=== PATIENT | female | born 1970 | race Caucasian/White ===

== ENCOUNTER → 2019-02-21 | Outpatient (CLI) | payer OTHER ==
[~2019-02-21] MED LIST: MEDROL DOSEPAK4 MG PO; METHOCARBAMOL500 M1 PO; NAPROSYN500 MG PO; ZITHROMAX250 MG PO
[2019-02-21 12:32] LABS: ALBUMIN 3.8 gm/dl (3.1-4.5); ALKALINE PHOSPHATASE 71 U/L (45-117); BUN 14 mg/dl (7-24); CHLORIDE 108 mmol/L (98-107); CHOLESTEROL 239 mg/dL (<200); HDL CHOLESTEROL 45 mg/dl (40-60); LDL CHOLESTEROL 125 mg/dL (9-159); POTASSIUM 3.7 mmol/L (3.5-5.1); SGOT/AST 20 IU/L (3-35); SGPT/ALT 18 U/L (12-78); SODIUM 140 mmol/L (136-145); TOTAL PROTEIN 7.2 gm/dL (6.4-8.2); TRIGLYCERIDES 347 mg/dl (<150); VLDL CHOLESTEROL 69 mg/dL (6-40)
[2019-02-21 12:36] LABS: HEMATOCRIT 37.4 % (37.0-47.0); HEMOGLOBIN 10.8 g/dl (12.0-16.0); MEAN CELL VOLUME 76.6 fl (81.0-99.0); MEAN CORPUSCULAR HGB 22.1 pg (27.0-31.0); MEAN CORPUSCULAR HGB CONC 28.9 g/dl (33.0-37.0); MEAN PLATELET VOLUME 9.7 fl (9.6-12.3); RED BLOOD COUNT 4.88 10*6/uL (4.10-5.10); RED CELL DISTRI WIDTH 15.5 % (0-14.5); WHITE BLOOD COUNT 5.8 10*3/uL (4.8-10.8)
== END | disposition home or self-care (01) ==
LOC: LAB 11:03
PROVIDERS: Family Medicine
DX: E78.00 Pure hypercholesterolemia, unspecified (principal); G47.00 Insomnia, unspecified; E55.9 Vitamin D deficiency, unspecified; F43.10 Post-traumatic stress disorder, unspecified; R53.83 Other fatigue

== ENCOUNTER 2019-02-25 15:10 | Emergency (ER) | payer OTHER ==
[~2019-02-25] VITALS: Ht 175.2 cm; Wt 88.5 kg
[2019-02-25] MEDS ORDERED: MEDROL DOSEPAK4 MG PO (15:57)
[2019-02-25] MEDS ORDERED: METHOCARBAMOL500 M1 PO (15:57)
[2019-02-25] MEDS ORDERED: ZITHROMAX250 MG PO (15:57)
[2019-02-25] MEDS ORDERED: NAPROSYN500 MG PO (15:57)
== END 2019-02-25 16:06 | disposition home or self-care (01) ==
LOC: ED 15:10
DX: M54.12 Radiculopathy, cervical region (principal); J20.9 Acute bronchitis, unspecified; F17.210 Nicotine dependence, cigarettes, uncomplicated